=== PATIENT | female | born 1965 | race Caucasian/White ===

== ENCOUNTER 2018-01-15 11:25 | Emergency (ER) | payer BC, OTHER ==
[2018-01-15 11:58] LABS: BASO % 0.3 % (0.0-1.0); EOS % 0.2 % (0.0-3.0); HEMATOCRIT 31.9 % (36.0-47.0); HEMOGLOBIN 8.9 g/dl (12.0-16.0); IMMATURE GRANULOCYTE % 0.2 % (0-3.0); LYMPH # 0.6 10^3/uL (1.5-4.5); LYMPH % 9.6 % (24.0-44.0); MEAN CORPUSCULAR HEMOGLOBIN 18.7 pg (27.0-33.0); MEAN CORPUSCULAR HGB CONC 27.9 g/dl (32.0-36.5); MEAN CORPUSCULAR VOLUME 67.2 fl (80.0-96.0); MONO # 0.8 10^3/uL (0.0-0.8); MONO % 13.3 % (0.0-5.0); NEUTROPHILS # 4.8 10^3/uL (1.8-7.7); NEUTROPHILS % 76.4 % (36.0-66.0); PLATELET COUNT, AUTOMATED 200 10^3/uL (150-450); RED BLOOD COUNT 4.75 10^6/uL (4.00-5.40); RED CELL DISTRIBUTION WIDTH 17.2 % (11.5-14.5); WHITE BLOOD COUNT 6.3 10^3/uL (4.0-10.0)
[2018-01-15 12:22] LABS: ALBUMIN 3.8 GM/DL (3.2-5.2); ALBUMIN/GLOBULIN RATIO 1.03 (1.00-1.93); ALKALINE PHOSPHATASE 151 U/L (45-117); ALT/SGPT 99 U/L (12-78); ANION GAP 9 MEQ/L (8-16); AST/SGOT 95 U/L (7-37); BILIRUBIN,DIRECT 0.1 MG/DL (0.0-0.2); BILIRUBIN,TOTAL 0.4 MG/DL (0.2-1.0); BLOOD UREA NITROGEN 11 MG/DL (7-18); CALCIUM LEVEL 8.4 MG/DL (8.5-10.1); CARBON DIOXIDE LEVEL 24 MEQ/L (21-32); CHLORIDE LEVEL 108 MEQ/L (98-107); CPK CREATINE PHOSPHOKINASE 49 U/L (26-192); CREATININE FOR GFR 0.83 MG/DL (0.55-1.30); GLOMERULAR FILTRATION RATE > 60.0 (>51); GLUCOSE, FASTING 102 MG/DL (70-100); LIPASE 110 U/L (73-393); MB/CK RELATIVE INDEX 2.04 (< OR =4); POTASSIUM SERUM 3.6 MEQ/L (3.5-5.1); SODIUM LEVEL 141 MEQ/L (136-145); TOTAL PROTEIN 7.5 GM/DL (6.4-8.2); TROPONIN I < 0.02 NG/ML (< 0.10)
[2018-01-15 12:24] LABS: NT-PRO BNP 159 PG/ML (<125)
[2018-01-15 12:57] LABS: INFLUENZA A AMPLIFICATION POSITIVE (NEGATIVE); INFLUENZA B AMPLIFICATION NEGATIVE (NEGATIVE)
[2018-01-15] MEDS: ACETAMINOPHEN TAB 650MG DOSE (2X325MG) PO ×2 (14:00→18:21)
[2018-01-15] MEDS: OSELTAMIVIR PHOSPHATE 75 MG CAP (TAMIFLU) PO (14:00)
[2018-01-15] MEDS: NS 1,000 ML IV (14:00)
[2018-01-15] MEDS ORDERED: ISOVUE-370 76% 100ML VIAL (Q9967) As Ordered (14:13)
[2018-01-15 18:10] LABS: CPK CREATINE PHOSPHOKINASE 44 U/L (26-192); MB/CK RELATIVE INDEX 2.27 (< OR =4); TROPONIN I < 0.02 NG/ML (< 0.10)
== END 2018-01-15 18:59 | disposition home or self-care (01) ==
LOC: M ED 11:25
DX: J09.X2 Influenza due to identified novel influenza A virus with other respiratory manifestations (principal); R91.8 Other nonspecific abnormal finding of lung field; Z86.2 Personal history of diseases of the blood and blood-forming organs and certain disorders involving the immune mechanism; Z98.0 Intestinal bypass and anastomosis status; Z87.891 Personal history of nicotine dependence; Z86.19 Personal history of other infectious and parasitic diseases; Z98.890 Other specified postprocedural states
CPT/HCPCS: Q9967

== ENCOUNTER 2018-12-27 13:38 | Inpatient (IN) | payer BC, OTHER ==
[~2018-12-27] VITALS: Ht 167.6 cm; Wt 82.9 kg
[~2018-12-27 13:38] MED LIST: OSEL75CA PO
[2018-12-27] MEDS ORDERED: CLON2TAB7 PO ×2 (13:48→17:56)
[2018-12-27] MEDS ORDERED: ARIP1TAB6 PO (13:48)
[2018-12-27] MEDS ORDERED: TRAZ150T90 PO (13:48)
[2018-12-27] MEDS ORDERED: ESCI20TA PO (13:48)
[2018-12-27 15:48] LABS: HEMATOCRIT 30.7 % (36.0-47.0); HEMOGLOBIN 8.7 g/dl (12.0-15.5); MEAN CORPUSCULAR HEMOGLOBIN 19.7 pg (27.0-33.0); MEAN CORPUSCULAR HGB CONC 28.3 g/dl (32.0-36.5); MEAN CORPUSCULAR VOLUME 69.5 fl (80.0-96.0); PLATELET COUNT, AUTOMATED 224 10^3/uL (150-450); RED BLOOD COUNT 4.42 10^6/uL (4.00-5.40); WHITE BLOOD COUNT 6.2 10^3/uL (4.0-10.0)
[2018-12-27 16:20] LABS: AMPHETAMINES LEVEL URINE NEGATIVE (NEGATIVE); BARBITURATES URINE NEGATIVE (NEGATIVE); BENZODIAZEPINES URINE NEGATIVE (NEGATIVE); CANNABINOIDS URINE NEGATIVE (NEGATIVE); COCAINE METABOLITE URINE NEGATIVE (NEGATIVE); METHADONE URINE NEGATIVE (NEGATIVE); OPIATES URINE NEGATIVE (NEGATIVE); PHENCYCLIDINE URINE NEGATIVE (NEGATIVE)
[2018-12-27 16:30] LABS: ACETAMINOPHEN LEVEL < 2.0 UG/ML (10.0-30.0); ALBUMIN 3.4 GM/DL (3.2-5.2); ALT/SGPT 32 U/L (12-78); BILIRUBIN,DIRECT < 0.1 MG/DL (0.0-0.2); BILIRUBIN,TOTAL 0.2 MG/DL (0.2-1.0); BLOOD UREA NITROGEN 17 MG/DL (7-18); CARBON DIOXIDE LEVEL 28 MEQ/L (21-32); CHLORIDE LEVEL 108 MEQ/L (98-107); CREATININE FOR GFR 0.69 MG/DL (0.55-1.30); ETHYL ALCOHOL (ETHANOL) < 0.003 % (0.000-0.010); GLOMERULAR FILTRATION RATE > 60.0 (>51); GLUCOSE, FASTING 96 MG/DL (70-100); SALICYLATE LEVEL < 1.7 MG/DL (5.0-30.0); SODIUM LEVEL 141 MEQ/L (136-145); TOTAL PROTEIN 6.5 GM/DL (6.4-8.2)
[2018-12-27 16:57] LABS: FERRITIN 4 NG/ML (8-252); IRON (FE) 18 UG/DL (50-170); PERCENT SATURATION 3.7 % (13.2-45.0); TOTAL IRON BINDING CAPACITY 483 UG/DL (250-450)
[2018-12-27] MEDS ORDERED: MAALOX 30 ML SUSP *UDC PO PRN (18:00)
[2018-12-27 18:29] VITALS: BP 146/65
[2018-12-27] MEDS: clonazePAM 1 MG TAB PO SCH (21:16)
[2018-12-27] MEDS: QUEtiapine FUMARATE 50 MG TAB PO PRN (21:48)
[2018-12-28 06:00] VITALS: BP 109/55
[2018-12-28] MEDS ORDERED: ESCITALOPRAM OXALATE 10 MG TAB (LEXAPRO) PO SCH (09:00)
[2018-12-28] MEDS ORDERED: SERTRALINE HCL 50 MG TAB PO SCH (09:00)
--- NOTE | 2018-12-28 09:11 | HPEPDOC ---
[facility] Medical History & Physical Date of Admission Dec 27, 2018 History and Physical PCP: Dr. Nielsen ATTENDING: Dr. Saniya Barba HPI: 53 yo F admitted to [facility] for unspecified mood disorder, being medically examined today. No acute medical complaints today. Denies any fevers, chills, weakness, fatigue, MURPHY, CP, SOB, cough, palpitations, abdominal pain, N/V/D or changes in bowel or bladder habits. PMHx: Anxiety Depression History of SI Anemia PSHX: Gastric bypass procedure Cholecystectomy Colonoscopy 08/27. Dr. Priest. Diverticulosis. Tubal ligation SOCHX: Resides in: 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 ROS: As noted in HPI, otherwise 11pt ROS of systems reviewed and remarkable only for postmenopausal PE: GEN: 53 yo F, appears stated age. Well-nourished, well developed. No acute distress. Alert and oriented x 3. Pleasant, interactive. HEENT: Normocephalic, atraumatic. Pupils are equal, round, and reactive to light. Extraocular movements are intact. No nystagmus appreciated. Sclera are nonicteric. Conjunctiva without injection. Nose midline. Nasal turbinates without bogginess. EACs both patent BL. TMs both visualized and canas with good cone of light, no bulging or erythema. No facial asymmetry. Moist mucous membranes. Dentition fair. Pharynx pink and moist, no cobblestoning. Neck supple, trachea midline. No lymphadenopathy or thyromegaly appreciated. CHEST: Regular rate and rhythm, +S1, +S2 LUNGS: Clear to auscultation bilaterally. No wheezes, rales, or rhonchi. Breathing appears symmetric and easy. Patient is speaking in full sentences. No accessory muscle use. ABD: Round, soft, non-tender, non-distended. +Bowel sounds throughout. No rebound or guarding. No costovertebral angle tenderness. EXT: Pulses 2+ bilaterally dorsalis pedis and radial. No lower extremity edema appreciated. SKIN: [place], dry, warm. Capillary refill <2sec. No rashes. NEURO: Alert and oriented x 3. Cranial nerves III-XII are intact. No focal deficits appreciated. EKG: Pending A&P: 53 yo F admitted to [facility] for unspecified mood disorder 1. Psych. Plan per Psychiatry. Obtain baseline EKG to assure the safety of psychiatric medications as they can prolong the QT interval. 2. History of chronic anemia. Hemoglobin is noted to be 8.7. MCV is noted to be 69.5. Last hemoglobin in the system January 2018 was 8.9, appears to be at baseline. Colonoscopy 2014, indicating diverticulosis. Recommendation for repeat study 5 years. Iron studies noted. Check vitamin B12, folate. Request FOB. Add iron supplement. Recheck CBC in a.m. 3.Follow up with PCP on discharge. 4.Staff member Myesha present throughout exam. Vital Signs Vital Signs Date Time Temp Pulse Resp B/P (MAP) Pulse Ox O2 Delivery O2 Flow Rate FiO2 12/28/18 06:00 98.0 55 20 109/55 (73) 12/27/18 18:29 99 12/27/18 18:04 Room Air Laboratory Data Labs 24H Laboratory Tests 2 12/27/18 15:35: Nucleated Red Blood Cells % (auto) 0.0, Anion Gap 5L, Glomerular Filtration Rate > 60.0, Calcium Level 8.0L, Iron Level 18L, Total Iron Binding Capacity 483H, Transferrin % Saturation 3.7L, Ferritin 4L, Aspartate Amino Transf (AST/SGOT) 22, Alanine Aminotransferase (ALT/SGPT) 32, Alkaline Phosphatase 115, Total Bilirubin 0.2, Direct Bilirubin < 0.1, Total Protein 6.5, Albumin 3.4, Albumin/Globulin Ratio 1.10, Thyroid Stimulating Hormone (TSH) 1.020, Salicylates Level < 1.7L, Acetaminophen Level < 2.0L, Ethyl Alcohol Level < 0.003 12/27/18 15:48: Urine Amphetamines Screen NEGATIVE, Urine Benzodiazepines Screen NEGATIVE, Urine Opiates Screen NEGATIVE, Urine Methadone Screen NEGATIVE, Urine Barbiturates Screen NEGATIVE, Urine Phencyclidine Screen NEGATIVE, Urine Cocaine Metabolite Screen NEGATIVE, Urine Cannabinoids Screen NEGATIVE CBC/BMP Laboratory Tests 12/27/18 15:35 Red Blood Count 4.42, Mean Corpuscular Volume 69.5 L, Mean Corpuscular Hemoglobin 19.7 L, Mean Corpuscular Hemoglobin Concent 28.3 L, Red Cell Distribution Width 17.2 H Home Medications Scheduled Aripiprazole (Aripiprazole) 5 Mg Tab, 5 MG PO DAILY Clonazepam (Clonazepam) 2 Mg Tab, 1 MG PO QPM 1.5 TABS TOTAL DAILY Clonazepam (Clonazepam) 2 Mg Tab, 2 MG PO QHS Escitalopram Oxalate (Escitalopram Oxalate) 20 Mg Tab, 20 MG PO DAILY Trazodone HCl (Trazodone Hydrochorlide) 150 Mg Tab, 150 MG PO QHS Allergies Coded Allergies: Codeine (Verified Allergy, Unknown, 02/02/15) Asuncion Esparza Dec 28, 2018 09:11
[2018-12-28] MEDS: FERROUS SULFATE 325MG TAB PO SCH ×2 (09:50→21:00)
[2018-12-28 10:17] LABS: FOLATE 5.3 NG/ML (>5.4)
[2018-12-28] MEDS: FOLIC ACID 1 MG TAB PO SCH (12:32)
[2018-12-28 18:21] VITALS: BP 121/58
--- NOTE | 2018-12-28 18:54 | MHHPEPDOC ---
General Date Of Admission: Dec 27, 2018 Legal Status: 9.39 Chief Complaint "I can't keep going on like this". History of Present Illness HISTORY OF THE PRESENT ILLNESS: Patient is a 53 -year-old , female, who * Therapist Reason for Referral Susana from [facility] sent pt over due to her having safety concerns for the pt. Chief Complaint Pt disclosed she has had ongoing problems with her place of employment (20 years) for ~2 years now. 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 Pt describes the work place as toxic and in particular, she is being bullied by one person making it impossible for her to do do her job or even want to go to work. Pt was very tearful explaining this story and stated "theres just so many things to tell you that have gone wrong. There's a lot more but I'm sick of retelling the whole story." Pt took a leave of absence due to medical reasons and without knowledge, was not being paid when she should have been. Pt states that her and her are "barely surviving." Pt reported thinking that if she ended her life at least her family would get the life insurance money and they would not be struggling financially anymore. Pt also disclosed that she has thought of driving her car into a hard object as a way to kill herself to stop the emotional pain. Pt also reported she often thinks before bed, "I just want to fall asleep and never wake up so I do not have to go to work tomorrow." Pt states she was "fine" until this particular person started bullying her at work, making her not want to work, but being unable to leave due to being uncertain about skilled nursing. Pt reports she has tried finding employment elsewhere but when places of employment find out about the lawsuit, they do not hire her, leaving the pt feeling stuck. Pt has a hx of panic attacks for ~2years now (since this situation begin). Pt denies HI, AH/VH, ETOH/substance abuse, poor sleeping/appetite. Pt is in tx with Susana @ [facility]". Psychiatric Review of Systems Depression (2 or more weeks): depressed mood, anhedonia, insomnia/hypersomnia, feelings of worthlesness, decreased energy, difficulty concentrating, psychomotor changes, suicidal thoughts Makenzie (4 or more days of): denies Psychosis: paranoia (she has felt like this since she started having problems at work) PTSD: denies Anxiety: gen/non-specific anxiety, situational anxiety, panic attacks Anxiety/ 6 months or more of: restlessness, keyed up, easily fatigued, difficulty concentrating, irritability, muscle tension, sleep disturbance Past Psychiatric History Previous Psychiatric Diagnosis: Panic attacks Previous Psychiatric Admissions: Denies Suicide Attempts: Denies Psychiatric Follow-up: She receives therapy weekly Psychiatric medications: Lexapro years ago when she was going through menopause. Past Medical History Medical Problems "My bones hurt" Head Injury: No Seizures: No Hospitalizations: Yes (pregnancies, gallbladder, tubal ligation, gastric bypas) Surgeries: Yes Family Medical/Psychiatric HX Medical Problems son has type i diabetes Psychiatric Disorders: No Addiction: No Suicide Attemps/Completions: No Addiction History nicotine (She quit 27 years ago), alcohol (a couple of times a week, one or 2) Social History Childhood: "It was fun", grew up with both parents, they later in life. She had 7 siblings, got along with them, school was ok Abuse/Trauma: Bullied at work during the last couple of months. denies sexual, physical abuse Current Living Situation: Lives with her and her dogs Education: Bachelors in Human Services Employment: employed Social Support: Her and friends Legal: Denies but she is having legal problems at work, she is being harassed Marital: , has children. Mental Status Examination General Appearance: unkempt, disheveled, ds/not appear stated age, hospital scubs/clothing Build: average Demeanor: average Eye Contact: average Activity: anxious Behavior: cooperative Speech: clear, spontaneous, reg/rate,rhythm,volume Mood: depressed, anxious Affect: full, appropriate, congruent, anxious, other (depressed) Thought Process: logical/linear Thought Content (Delusions): none reported Thought Content (Other): preoccupied, guilty, ideas of reference, appears paranoid Thought Content (Aggressive): none reported Perception (Hallucinations): none reported Perception (Other): none reported Cognition (Impairment of): none reported Cognition(Intelligence Est.): average Oriented: Awake, Alert, Oriented times three Insight: fair Judgment: Fair Psychosis: Denies Diagnoses 1. R/O Major Depressive disorder, with psychosis 2. Generalized Anxiety Disorder Assessment patient seems paranoid, she says that different staff members have conspired against them. She says one of those persons is not longer working there but the new person that has substituted the previous boss, is even worse. she says she is being bullied, she has no idea as of what to do. Her had to go to therapy because she is "in such a bad shape" Initial Treatment Plan 1. Patient was admitted on a [9.39] status. 2. Complete history was obtained. 3. With patients permission, family will be contacted and database will be expanded. 4. Patients medication regimen will be reviewed and changed accordingly. 5. Patient will be provided with protected environment. 6. Patient will be treated with individual, group, and milieu therapies. 7. Patient will receive supportive psych-education. 8. Discharge planning will commence immediately. 9. Outpatient follow-up treatment will be strongly recommended. 10. The initial treatment plan will focus initially on: * Depression. * Anxiety * altered thoughts * Risk for suicide. ESTIMATED LENGTH OF STAY: 5-7 DAYS. TIME SPENT COUNSELING AND COORDINATING INITIAL CARE: 60 minutes. Vital Signs Vital Signs Date Time Temp Pulse Resp B/P (MAP) Pulse Ox O2 Delivery O2 Flow Rate FiO2 12/28/18 06:00 98.0 55 20 109/55 (73) 12/27/18 18:29 99 12/27/18 18:04 Room Air Laboratory Data 24H Labs Laboratory Tests 2 12/27/18 15:34: Vitamin B12 Level 270, Folate 5.3L 12/27/18 15:35: Nucleated Red Blood Cells % (auto) 0.0, Anion Gap 5L, Glomerular Filtration Rate > 60.0, Calcium Level 8.0L, Iron Level 18L, Total Iron Binding Capacity 483H, Transferrin % Saturation 3.7L, Ferritin 4L, Aspartate Amino Transf (AST/SGOT) 22, Alanine Aminotransferase (ALT/SGPT) 32, Alkaline Phosphatase 115, Total Bilirubin 0.2, Direct Bilirubin < 0.1, Total Protein 6.5, Albumin 3.4, Albumin/Globulin Ratio 1.10, Thyroid Stimulating Hormone (TSH) 1.020, Salicylates Level < 1.7L, Acetaminophen Level < 2.0L, Ethyl Alcohol Level < 0.003 12/27/18 15:48: Urine Amphetamines Screen NEGATIVE, Urine Benzodiazepines Screen NEGATIVE, Urine Opiates Screen NEGATIVE, Urine Methadone Screen NEGATIVE, Urine Barbiturates Screen NEGATIVE, Urine Phencyclidine Screen NEGATIVE, Urine Cocaine Metabolite Screen NEGATIVE, Urine Cannabinoids Screen NEGATIVE CBC/BMP Laboratory Tests 12/27/18 15:35 Red Blood Count 4.42, Mean Corpuscular Volume 69.5 L, Mean Corpuscular Hemoglobin 19.7 L, Mean Corpuscular Hemoglobin Concent 28.3 L, Red Cell Distribution Width 17.2 H Medications Scheduled Aripiprazole (Aripiprazole) 5 Mg Tab, 5 MG PO DAILY, (Reported) Clonazepam (Clonazepam) 2 Mg Tab, 1 MG PO QPM, (Reported) 1.5 TABS TOTAL DAILY Clonazepam (Clonazepam) 2 Mg Tab, 2 MG PO QHS, (Reported) Escitalopram Oxalate (Escitalopram Oxalate) 20 Mg Tab, 20 MG PO DAILY, (Reported) Trazodone HCl (Trazodone Hydrochorlide) 150 Mg Tab, 150 MG PO QHS, (Reported) Allergies Coded Allergies: Codeine (Verified Allergy, Unknown, 02/02/15) HENRIETTA CLIFFORD MD Dec 28, 2018 15:10
[2018-12-28] MEDS: clonazePAM 1 MG TAB PO SCH (21:10)
[2018-12-28] MEDS: QUEtiapine FUMARATE 50 MG TAB PO PRN (21:10)
[2018-12-28] MEDS: MOM 30ML SUSPENSION UDC PO PRN (21:10)
[2018-12-28] MEDS: PALIPERIDONE 3 MG ER TAB (INVEGA) PO SCH (21:10)
[2018-12-29] MEDS: ACETAMINOPHEN TAB 650MG DOSE (2X325MG) PO PRN ×3 (06:34→20:51)
[2018-12-29 06:40] VITALS: BP 118/57
[2018-12-29 07:11] LABS: HEMATOCRIT 31.6 % (36.0-47.0); HEMOGLOBIN 8.9 g/dl (12.0-15.5); MEAN CORPUSCULAR HEMOGLOBIN 19.7 pg (27.0-33.0); MEAN CORPUSCULAR HGB CONC 28.2 g/dl (32.0-36.5); MEAN CORPUSCULAR VOLUME 69.9 fl (80.0-96.0); PLATELET COUNT, AUTOMATED 175 10^3/uL (150-450); RED BLOOD COUNT 4.52 10^6/uL (4.00-5.40); WHITE BLOOD COUNT 5.8 10^3/uL (4.0-10.0)
--- NOTE | 2018-12-29 07:24 | ECGEPIP ---
Stationary ECG Study [facility] Test Date: 2018-12-28 Pat Name: LINSEY MORE Department: Room: [place] [address] Gender: F Retail Buyer: : [id number] Requested By: Asuncion Esparza Order Number: [id number] Reading MD: Sindy Hdez Measurements Intervals [place] Rate: 66 P: 65 MO: 169 QRS: 17 QRSD: 86 T: 29 QT: 357 QTc: 374 Interpretive Statements SINUS RHYTHM NORMAL Electronically Signed On 12-29-2018 7:23:53 EST by Sindy Hdez
[2018-12-29] MEDS: FOLIC ACID 1 MG TAB PO SCH (08:57)
[2018-12-29] MEDS: FERROUS SULFATE 325MG TAB PO SCH (08:57)
[2018-12-29] MEDS: SERTRALINE HCL 50 MG TAB PO SCH (08:57)
[2018-12-29] MEDS: PALIPERIDONE 3 MG ER TAB (INVEGA) PO SCH ×2 (08:57→20:51)
[2018-12-29 18:00] VITALS: BP 140/66
[2018-12-29] MEDS: QUEtiapine FUMARATE 50 MG TAB PO PRN (20:51)
[2018-12-29] MEDS: clonazePAM 1 MG TAB PO SCH (20:51)
[2018-12-30 06:00] VITALS: BP 108/57
[2018-12-30] MEDS: ACETAMINOPHEN TAB 650MG DOSE (2X325MG) PO PRN ×2 (07:13→16:27)
[2018-12-30] MEDS: SERTRALINE HCL 50 MG TAB PO SCH (08:39)
[2018-12-30] MEDS: PALIPERIDONE 3 MG ER TAB (INVEGA) PO SCH ×2 (08:39→20:50)
[2018-12-30] MEDS: FOLIC ACID 1 MG TAB PO SCH (08:39)
[2018-12-30 18:00] VITALS: BP 114/63
[2018-12-30] MEDS: QUEtiapine FUMARATE 50 MG TAB PO PRN (20:50)
[2018-12-30] MEDS: clonazePAM 1 MG TAB PO SCH (20:50)
[2018-12-31] MEDS: ACETAMINOPHEN TAB 650MG DOSE (2X325MG) PO PRN ×3 (02:09→16:04)
[2018-12-31 07:12] VITALS: BP 129/60
[2018-12-31] MEDS: FOLIC ACID 1 MG TAB PO SCH (09:00)
[2018-12-31] MEDS: SERTRALINE HCL 50 MG TAB PO SCH (09:00)
[2018-12-31] MEDS: hydrOXYzine 50 MG TAB PO PRN ×2 (09:00→15:28)
[2018-12-31] MEDS: PALIPERIDONE 3 MG ER TAB (INVEGA) PO SCH ×2 (09:00→20:59)
[2018-12-31] MEDS: MOM 30ML SUSPENSION UDC PO PRN (17:17)
--- NOTE | 2018-12-31 17:31 | MHIPNPDOC ---
[facility] Progress Note Progress Note DATE OF SERVICE: 12/31/18 HISTORY:HISTORY OF THE PRESENT ILLNESS: Patient is a 53 -year-old , female, who * Therapist Reason for Referral Susana from [facility] sent pt over due to her having safety concerns for the pt. Chief Complaint Pt disclosed she has had ongoing problems with her place of employment (20 years) for ~2 years now. 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 Pt describes the work place as toxic and in particular, she is being bullied by one person making it impossible for her to do do her job or even want to go to work. Pt was very tearful explaining this story and stated "theres just so many things to tell you that have gone wrong. There's a lot more but I'm sick of retelling the whole story." Pt took a leave of absence due to medical reasons and without knowledge, was not being paid when she should have been. Pt states that her and her are "barely surviving." Pt reported thinking that if she ended her life at least her family would get the life insurance money and they would not be struggling financially anymore. Pt also disclosed that she has thought of driving her car into a hard object as a way to kill herself to stop the emotional pain. Pt also reported she often thinks before bed, "I just want to fall asleep and never wake up so I do not have to go to work tomorrow." Pt states she was "fine" until this particular person started bullying her at work, making her not want to work, but being unable to leave due to being uncertain about penitentiary. Pt reports she has tried finding employment elsewhere but when places of employment find out about the lawsuit, they do not hire her, leaving the pt feeling stuck. Pt has a hx of panic attacks for ~2years now (since this situation begin). Pt denies HI, AH/VH, ETOH/substance abuse, poor sleeping/appetite. Pt is in tx with Susana @ [facility]". VITAL SIGNS: See below. NEW TEST RESULTS: . CURRENT MEDICATIONS: See below. MENTAL STATUS EXAMINATION: Patient is a 53 year old female, who is alert, cooperative, dressed in hospital clothes, disheveled, unkempt Speech: Is normal rate, tone and volume. Language skills are good. Thought processes including: a little disorganized, paranoid, circumstantial. Thought content: focused on her problems at work, paranoid thoughts about her situation at work. cognitive distortions, depressed/anxious thoughts Description of abnormal or psychotic thoughts: denies SI/HI, denies thought delusions, denies AV hallucinations but she exhibits paranoid behavior. Judgment: Poor. Insight: Poor Orientation: x 3 Recent and remote memory: Good Attention span and concentration: distractible. Fund of knowledge: average Mood: depressed/anxious. Affect: congruent with mood, constricted, depressed, anxious. DIAGNOSES: 1. Major Depressive disorder with psychosis 2. R/O delusional disorder ASSESSMENT: Patient continues to be fixated on her job situation, where he feels everyone is against her, especially after she sued them. She hasn't been able to sleep, she will receive Seroquel 100 mgs PO QHS MANAGEMENT PLAN: Start Seroquel 100 mgs PO QHS TIME SPENT: 25 minutes. Vital Signs Vital Signs Date Time Temp Pulse Resp B/P (MAP) Pulse Ox O2 Delivery O2 Flow Rate FiO2 12/31/18 07:12 97.8 95 14 129/60 (83) 12/30/18 08:06 Room Air 12/27/18 18:29 99 Current Medications Current Medications Acetaminophen (Tylenol Tab) 650 mg Q6HP PRN PO HEADACHE or DISCOMFORT Last administered on 12/31/18at 09:00; Start 12/27/18 at 18:00 Al Hydrox/Mg Hydrox/Simethicone (Mylanta) 30 ml Q4HP PRN PO HEARTBURN/INDIGESTION Last administered on 12/28/18at 21:45; Start 12/27/18 at 18:00 Aripiprazole (AbiLIFY) 5 mg DAILY PO Last administered on 12/28/18at 08:12; Start 12/28/18 at 09:00; Stop 12/28/18 at 19:27; Status DC Clonazepam (KlonoPIN) 2 mg QHS PO Last administered on 12/30/18at 20:50; Start 12/27/18 at 21:00 Escitalopram Oxalate (Lexapro) 20 mg DAILY PO Last administered on 12/28/18at 08:12; Start 12/28/18 at 09:00; Stop 12/28/18 at 15:15; Status DC Ferrous Sulfate (Ferrous Sulfate) 325 mg BID PO Last administered on 12/29/18 08:57; Start 12/28/18 at 09:00; Stop 12/29/18 at 11:56; Status DC Folic Acid (Folic Acid) 1 mg DAILY PO Last administered on 12/31/18at 09:00; Start 12/28/18 at 09:00 Home Med (Med Rec Complete!) ASDIRECTED XX ; Start 12/27/18 at 18:00; Stop 12/27/18 at 18:04; Status DC Hydroxyzine HCl (Atarax) 50 mg Q6HP PRN PO ANXIETY/AGGITATION Last administered on 12/31/18at 09:00; Start 12/27/18 at 18:00 Magnesium Hydroxide (Milk Of Magnesia) 30 ml DAILYPRN PRN PO CONSTIPATION Last administered on 12/28/18at 21:10; Start 12/27/18 at 18:00 Paliperidone (Invega) 3 mg BID PO Last administered on 12/31/18at 09:00; Start 12/28/18 at 21:00 Quetiapine Fumarate (SEROquel) 50 mg QHSP PRN PO INSOMNIA Last administered on 12/30/18at 20:50; Start 12/27/18 at 18:00 Sertraline HCl (Zoloft) 50 mg QAM PO ; Start 12/28/18 at 09:00; Stop 12/28/18 at 09:00; Status DC Sertraline HCl (Zoloft) 50 mg QAM PO Last administered on 12/31/18at 09:00; Start 12/29/18 at 09:00 Allergies Coded Allergies: Codeine (Verified Allergy, Unknown, 02/02/15) HENRIETTA CLIFFORD MD Dec 31, 2018 10:51
[2018-12-31] MEDS ORDERED: QUEtiapine FUMARATE 50 MG TAB PO PRN (17:45)
[2018-12-31 18:00] VITALS: BP 134/68
[2018-12-31] MEDS ORDERED: IBUPROFEN 600 MG TAB PO PRN (19:00)
--- NOTE | 2018-12-31 19:08 | REP ---
CT Head without contrast HISTORY: Mental status change COMPARISON: None There is no intraparenchymal hemorrhage, acute infarct, mass or midline shift. The ventricular system and cortical ethan consistent with minimal volume loss. There is no extra cerebral collection. There is no fracture. The visualized sinuses are clear. IMPRESSION: Minimal volume loss. Electronically Signed by Galo Hannah MD 12/31/2018 07:00 P
[2018-12-31] MEDS: FLUTICASONE PROP 0.05% NASAL SPRAY 16 GM (FLONASE) NARES SCH (20:58)
[2018-12-31] MEDS: clonazePAM 1 MG TAB PO SCH (20:59)
[2019-01-01] MEDS: ACETAMINOPHEN TAB 650MG DOSE (2X325MG) PO PRN ×2 (05:51→15:07)
[2019-01-01 06:34] VITALS: BP 126/61
[2019-01-01] MEDS: FOLIC ACID 1 MG TAB PO SCH (08:17)
[2019-01-01] MEDS: FLUTICASONE PROP 0.05% NASAL SPRAY 16 GM (FLONASE) NARES SCH ×2 (08:17→21:08)
[2019-01-01] MEDS: PALIPERIDONE 3 MG ER TAB (INVEGA) PO SCH ×2 (08:17→21:10)
[2019-01-01] MEDS ORDERED: SERTRALINE HCL 50 MG TAB PO SCH (09:00)
--- NOTE | 2019-01-01 09:36 | MHIPN ---
DATE: 12/29/2018 The patient complains that she was feeling sick this morning and she had a headache. She said that she was having a lot of vivid dreams all night. She seems to be very focused on not feeling well physically and very guarded about the paranoid thoughts and ideas of reference that she has. MENTAL STATUS EXAMINATION: She is alert and oriented times three. Eye contact is fair. She is verbally spontaneous. There is no formal thought disorder noted. Mood is depressed and anxious. Affect is full range and appropriate. She is guarded, but I think that she still continues to have paranoid thoughts and ideas of reference. SHe is not suicidal or homicidal. Concentration is fair. Memory is intact. Insight and judgment are poor. DIAGNOSIS: 1. Rule out major depressive disorder with psychosis and generalized anxiety disorder. TREATMENT PLAN: At this point, we will continue to monitor the patient for her underlying psychotic symptoms. We will titrate her medications as indicated.
--- NOTE | 2019-01-01 09:43 | MHIPN ---
DATE: 12/30/2018 The patient today continues to complain of having a headache. She says that it is not as intense as it was before, but it does not seem to fully subside. The patient is not voicing any paranoid type thoughts at this point, but she is very vague and talks about how she wants to know what is going to happen in her future. MENTAL STATUS EXAMINATION: She is alert and oriented times three. Eye contact is fairly good. She is verbally spontaneous. She describes that her mood is "not good." She still appears to be depressed. Affect is appropriate. She is also anxious. Although she is vague about it, I do think that she continues to have some underlying paranoid thinking. She denies suicidal or homicidal ideations. Concentration is fair. Memory is intact. Insight and judgment poor. DIAGNOSES: 1. Rule out major depressive disorder with psychosis. 2. Generalized anxiety disorder. TREATMENT PLAN: We will continue to evaluate this patient for ongoing psychotic symptoms, depression and anxiety and we will continue to titrate her medications as indicated. It is possible that she might be having some headaches as a result of some of her medications. It seems that Zoloft is a new medication for her and sometimes Zoloft can cause a headache, but she does say that it has lessened now and it is possible that she may be adjusting to it as this point. If not, we may have to discontinue the Zoloft.
[2019-01-01] MEDS ORDERED: SODIUM CHLORIDE NASAL 0.65% SPRAY BTL (OCEAN) PRN (10:15)
[2019-01-01] MEDS: FERROUS SULFATE 325MG TAB PO SCH ×2 (10:32→21:10)
[2019-01-01] MEDS: hydrOXYzine 50 MG TAB PO PRN (15:07)
[2019-01-01 18:00] VITALS: BP 102/58
--- NOTE | 2019-01-01 19:53 | MHIPNPDOC ---
[facility] Progress Note Progress Note DATE OF SERVICE: 01/01/19 HISTORY:HISTORY OF THE PRESENT ILLNESS: Patient is a 53 -year-old , female, who * Therapist Reason for Referral Susana from [facility] sent pt over due to her having safety concerns for the pt. Chief Complaint Pt disclosed she has had ongoing problems with her place of employment (20 years) for ~2 years now. 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 Pt describes the work place as toxic and in particular, she is being bullied by one person making it impossible for her to do do her job or even want to go to work. Pt was very tearful explaining this story and stated "theres just so many things to tell you that have gone wrong. There's a lot more but I'm sick of retelling the whole story." Pt took a leave of absence due to medical reasons and without knowledge, was not being paid when she should have been. Pt states that her and her are "barely surviving." Pt reported thinking that if she ended her life at least her family would get the life insurance money and they would not be struggling financially anymore. Pt also disclosed that she has thought of driving her car into a hard object as a way to kill herself to stop the emotional pain. Pt also reported she often thinks before bed, "I just want to fall asleep and never wake up so I do not have to go to work tomorrow." Pt states she was "fine" until this particular person started bullying her at work, making her not want to work, but being unable to leave due to being uncertain about assisted. Pt reports she has tried finding employment elsewhere but when places of employment find out about the lawsuit, they do not hire her, leaving the pt feeling stuck. Pt has a hx of panic attacks for ~2years now (since this situation begin). Pt denies HI, AH/VH, ETOH/substance abuse, poor sleeping/appetite. Pt is in tx with Susana @ [facility]". VITAL SIGNS: See below. NEW TEST RESULTS: . CURRENT MEDICATIONS: See below. MENTAL STATUS EXAMINATION: Patient is a 53 year old female, who is alert, cooperative, dressed in hospital clothes, disheveled, unkempt, laying in bed Speech: Is normal rate, tone and volume. Language skills are good. Thought processes including: Linear. Thought content: Cognitive distortions, paranoid thoughts Description of abnormal or psychotic thoughts: denies SI/HI, denies thought delusions, denies AV hallucinations but she exhibits paranoid behavior. Judgment: Poor. Insight: Poor Orientation: x 3 Recent and remote memory: Good Attention span and concentration: distractible. Fund of knowledge: average Mood: depressed/anxious. Affect: congruent with mood, constricted, depressed, anxious. DIAGNOSES: 1. Major Depressive disorder with psychosis 2. R/O delusional disorder ASSESSMENT: Patient was laying in bed, asleep when I awakened her. She reported that she was feeling better and she looked better. She looked less tired although she still reported problems sleeping. She said she woke up around 2:30 a..m and was not able to fall asleep. She is not as anxious as she was, she is not overstressing about her situation at work today. I encouraged her to attend groups if she can (I saw a collage that she did in group) but I also encouraged her to rest. Will increase Seroquel to 200 mgs. PO QHS MANAGEMENT PLAN: Start Seroquel 200 mgs PO QHS TIME SPENT: 25 minutes. Vital Signs Vital Signs Date Time Temp Pulse Resp B/P (MAP) Pulse Ox O2 Delivery O2 Flow Rate FiO2 01/01/19 06:34 99.6 97 18 126/61 (82) 12/30/18 08:06 Room Air 12/27/18 18:29 99 Current Medications Current Medications Acetaminophen (Tylenol Tab) 650 mg Q6HP PRN PO HEADACHE or DISCOMFORT Last administered on 01/01/19at 15:07; Start 12/27/18 at 18:00 Al Hydrox/Mg Hydrox/Simethicone (Mylanta) 30 ml Q4HP PRN PO HEARTBURN/INDIGESTION Last administered on 12/28/18at 21:45; Start 12/27/18 at 18:00 Aripiprazole (AbiLIFY) 5 mg DAILY PO Last administered on 12/28/18at 08:12; Sta rt 12/28/18 at 09:00; Stop 12/28/18 at 19:27; Status DC Clonazepam (KlonoPIN) 2 mg QHS PO Last administered on 12/31/18 20:59; Start 12/27/18 at 21:00 Escitalopram Oxalate (Lexapro) 20 mg DAILY PO Last administered on 12/28/18at 08:12; Start 12/28/18 at 09:00; Stop 12/28/18 at 15:15; Status DC Ferrous Sulfate (Ferrous Sulfate) 325 mg BID PO Last administered on 12/29/18 08:57; Start 12/28/18 at 09:00; Stop 12/29/18 at 11:56; Status DC Ferrous Sulfate (Ferrous Sulfate) 325 mg BID PO Last administered on 01/01/19 10:32; Start 01/01/19 at 09:00 Fluticasone Propionate (Flonase 0.05% Nasal [place]) 1 spray BID NARES Last administered on 01/01/19 08:17; Start 12/31/18 at 21:00 Folic Acid (Folic Acid) 1 mg DAILY PO Last administered on 01/01/19 08:17; St art 12/28/18 at 09:00 Home Med (Med Rec Complete!) ASDIRECTED XX ; Start 12/27/18 at 18:00; Stop 12/27/18 at 18:04; Status DC Hydroxyzine HCl (Atarax) 50 mg Q6HP PRN PO ANXIETY/AGGITATION Last administered on 01/01/19at 15:07; Start 12/27/18 at 18:00 Ibuprofen (Advil) 600 mg Q6HP PRN PO PAIN OR DISCOMFORT; Start 12/31/18 at 19:00; Stop 01/01/19 at 10:13; Status DC Magnesium Hydroxide (Milk Of Magnesia) 30 ml DAILYPRN PRN PO CONSTIPATION Last administered on 12/31/18at 17:17; Start 12/27/18 at 18:00 Paliperidone (Invega) 3 mg BID PO Last administered on 01/01/19 08:17; Start 12/28/18 at 21:00 Quetiapine Fumarate (SEROquel) 50 mg QHSP PRN PO INSOMNIA Last administered on 12/30/18at 20:50; Start 12/27/18 at 18:00; Stop 12/31/18 at 17:32; Status DC Quetiapine Fumarate (SEROquel) 100 mg QHSP PRN PO INSOMNIA Last administered on 12/31/18at 20:59; Start 12/31/18 at 17:45 Sertraline HCl (Zoloft) 50 mg QAM PO ; Start 12/28/18 at 09:00; Stop 12/28/18 at 09:00; Status DC Sertraline HCl (Zoloft) 50 mg QAM PO Last administered on 12/31/18at 09:00; Start 12/29/18 at 09:00; Stop 12/31/18 at 17:32; Status DC Sertraline HCl (Zoloft) 100 mg QAM PO Last administered on 01/01/19at 08:17; Start 01/01/19 at 09:00; Stop 01/01/19 at 10:04; Status DC Sertraline HCl (Zoloft) 100 mg QAM PO ; Start 01/02/19 at 09:00 Sodium Chloride ([place] Nasal [place]) 2 spray Q2HP PRN NA NASAL DRYNESS; Start 01/01/19 at 10:15 Allergies Coded Allergies: Codeine (Verified Allergy, Unknown, 02/02/15) HENRIETTA CLIFFORD MD Jan 01, 2019 19:53
[2019-01-01] MEDS ORDERED: QUEtiapine FUMARATE 200 MG TAB PO PRN (20:00)
[2019-01-01] MEDS: clonazePAM 1 MG TAB PO SCH (21:10)
[2019-01-02 06:53] VITALS: BP 103/51
[2019-01-02] MEDS: hydrOXYzine 50 MG TAB PO PRN (08:58)
[2019-01-02] MEDS: FOLIC ACID 1 MG TAB PO SCH (08:59)
[2019-01-02] MEDS: PALIPERIDONE 3 MG ER TAB (INVEGA) PO SCH ×2 (08:59→20:52)
[2019-01-02] MEDS: FERROUS SULFATE 325MG TAB PO SCH ×2 (08:59→20:52)
[2019-01-02] MEDS: FLUTICASONE PROP 0.05% NASAL SPRAY 16 GM (FLONASE) NARES SCH ×2 (08:59→20:52)
[2019-01-02] MEDS: SERTRALINE 100 MG TAB PO SCH (08:59)
[2019-01-02] MEDS: DOCUSATE SODIUM 100 MG CAP PO SCH ×2 (10:58→20:52)
[2019-01-02 18:00] VITALS: BP 121/63
[2019-01-02] MEDS: QUEtiapine FUMARATE 100 MG TAB PO PRN (20:53)
[2019-01-02] MEDS: clonazePAM 1 MG TAB PO SCH (20:53)
--- NOTE | 2019-01-02 21:03 | MHIPNPDOC ---
[facility] Progress Note Progress Note DATE OF SERVICE: 01/02/19 HISTORY:HISTORY OF THE PRESENT ILLNESS: Patient is a 53 -year-old , female, who * Therapist Reason for Referral Susana from [facility] sent pt over due to her having safety concerns for the pt. Chief Complaint Pt disclosed she has had ongoing problems with her place of employment (20 years) for ~2 years now. 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 Pt describes the work place as toxic and in particular, she is being bullied by one person making it impossible for her to do do her job or even want to go to work. Pt was very tearful explaining this story and stated "theres just so many things to tell you that have gone wrong. There's a lot more but I'm sick of retelling the whole story." Pt took a leave of absence due to medical reasons and without knowledge, was not being paid when she should have been. Pt states that her and her are "barely surviving." Pt reported thinking that if she ended her life at least her family would get the life insurance money and they would not be struggling financially anymore. Pt also disclosed that she has thought of driving her car into a hard object as a way to kill herself to stop the emotional pain. Pt also reported she often thinks before bed, "I just want to fall asleep and never wake up so I do not have to go to work tomorrow." Pt states she was "fine" until this particular person started bullying her at work, making her not want to work, but being unable to leave due to being uncertain about usp. Pt reports she has tried finding employment elsewhere but when places of employment find out about the lawsuit, they do not hire her, leaving the pt feeling stuck. Pt has a hx of panic attacks for ~2years now (since this situation begin). Pt denies HI, AH/VH, ETOH/substance abuse, poor sleeping/appetite. Pt is in tx with Susana @ [facility]". VITAL SIGNS: See below. NEW TEST RESULTS: . CURRENT MEDICATIONS: See below. MENTAL STATUS EXAMINATION: Patient is a 53 year old female, who is alert, cooperative, dressed in hospital clothes, disheveled, unkempt, looking tired Speech: Is normal rate, tone and volume. Language skills are good. Thought processes including: Linear. Thought content: Cognitive distortions but she is less paranoid although she is afraid of her co workers Description of abnormal or psychotic thoughts: denies SI/HI, denies thought delusions, denies AV hallucinations, a little less paranoid Judgment: Poor. Insight: Poor Orientation: x 3 Recent and remote memory: Good Attention span and concentration: improving Fund of knowledge: average Mood: depressed/anxious, but there is improvement Affect: congruent with mood, constricted, depressed, anxious. DIAGNOSES: 1. Major Depressive disorder with psychosis 2. R/O delusional disorder ASSESSMENT: Ranulfo tells me she is still having problems sleeping with 200 mgs of Seroquel, she says she still wakes up at 2:30 a.m. TW will increase Seroquel to 300 mgs PO QHS. MANAGEMENT PLAN: Start Seroquel 300 mgs PO QHS TIME SPENT: 25 minutes. Vital Signs Vital Signs Date Time Temp Pulse Resp B/P (MAP) Pulse Ox O2 Delivery O2 Flow Rate FiO2 01/02/19 06:53 98.6 78 16 103/51 (68) 12/30/18 08:06 Room Air 12/27/18 18:29 99 Current Medications Current Medications Acetaminophen (Tylenol Tab) 650 mg Q6HP PRN PO HEADACHE or DISCOMFORT Last administered on 01/01/19at 15:07; Start 12/27/18 at 18:00 Al Hydrox/Mg Hydrox/Simethicone (Mylanta) 30 ml Q4HP PRN PO HEARTBURN/INDIGESTION Last administered on 12/28/18at 21:45; Start 12/27/18 at 18:00 Aripiprazole (AbiLIFY) 5 mg DAILY PO Last administered on 12/28/18at 08:12; Start 12/28/18 at 09:00; Stop 12/28/18 at 19:27; Status DC Clonazepam (KlonoPIN) 2 mg QHS PO Last administered on 01/01/19at 21:10; Start 12/27/18 at 21:00 Docusate Sodium (Colace) 100 mg BID PO Last administered on 01/02/19at 10:58; Start 01/02/19 at 09:00 Escitalopram Oxalate (Lexapro) 20 mg DAILY PO Last administered on 12/28/18 08:12; Start 12/28/18 at 09:00; Stop 12/28/18 at 15:15; Status DC Ferrous Sulfate (Ferrous Sulfate) 325 mg BID PO Last administered on 12/29/18 08:57; Start 12/28/18 at 09:00; Stop 12/29/18 at 11:56; Status DC Ferrous Sulfate (Ferrous Sulfate) 325 mg BID PO Last administered on 01/02/19at 08:59; Start 01/01/19 at 09:00 Fluticasone Propionate (Flonase 0.05% Nasal [place]) 1 spray BID NARES Last administered on 01/02/19 08:59; Start 12/31/18 at 21:00 Folic Acid (Folic Acid) 1 mg DAILY PO Last administered on 01/02/19 08:59; Start 12/28/18 at 09:00 Home Med (Med Rec Complete!) ASDIRECTED XX ; Start 12/27/18 at 18:00; Stop 12/27/18 at 18:04; Status DC Hydroxyzine HCl (Atarax) 50 mg Q6HP PRN PO ANXIETY/AGGITATION Last administered on 01/02/19 08:58; Start 12/27/18 at 18:00 Ibuprofen (Advil) 600 mg Q6HP PRN PO PAIN OR DISCOMFORT; Start 12/31/18 at 19:00; Stop 01/01/19 at 10:13; Status DC Magnesium Hydroxide (Milk Of Magnesia) 30 ml DAILYPRN PRN PO CONSTIPATION Last administered on 12/31/18at 17:17; Start 12/27/18 at 18:00 Paliperidone (Invega) 3 mg BID PO Last administered on 01/02/19 08:59; Start 12/28/18 at 21:00 Quetiapine Fumarate (SEROquel) 50 mg QHSP PRN PO INSOMNIA Last administered on 12/30/18 20:50; Start 12/27/18 at 18:00; Stop 12/31/18 at 17:32; Status DC Quetiapine Fumarate (SEROquel) 100 mg QHSP PRN PO INSOMNIA Last administered on 12/31/18 20:59; Start 12/31/18 at 17:45; Stop 01/01/19 at 19:54; Status DC Quetiapine Fumarate (SEROquel) 200 mg QHSP PRN PO INSOMNIA Last administered on 01/01/19at 21:09; Start 01/01/19 at 20:00 Sertraline HCl (Zoloft) 50 mg QAM PO ; Start 12/28/18 at 09:00; Stop 12/28/18 at 09:00; Status DC Sertraline HCl (Zoloft) 50 mg QAM PO Last administered on 12/31/18at 09:00; Start 12/29/18 at 09:00; Stop 12/31/18 at 17:32; Status DC Sertraline HCl (Zoloft) 100 mg QAM PO Last administered on 01/01/19at 08:17; Start 01/01/19 at 09:00; Stop 01/01/19 at 10:04; Status DC Sertraline HCl (Zoloft) 100 mg QAM PO Last administered on 01/02/19at 08:59; Start 01/02/19 at 09:00 Sodium Chloride ([place] Nasal [place]) 2 spray Q2HP PRN NA NASAL DRYNESS; Start 01/01/19 at 10:15 Allergies Coded Allergies: Codeine (Verified Allergy, Unknown, 02/02/15) HENRIETTA CLIFFORD MD Jan 02, 2019 16:42
[2019-01-03 06:40] VITALS: BP 105/61
[2019-01-03] MEDS: PALIPERIDONE 3 MG ER TAB (INVEGA) PO SCH ×2 (09:01→20:58)
[2019-01-03] MEDS: SERTRALINE 100 MG TAB PO SCH (09:01)
[2019-01-03] MEDS: FERROUS SULFATE 325MG TAB PO SCH ×2 (09:01→20:58)
[2019-01-03] MEDS: hydrOXYzine 50 MG TAB PO PRN ×2 (09:01→17:28)
[2019-01-03] MEDS: FOLIC ACID 1 MG TAB PO SCH (09:01)
[2019-01-03] MEDS: DOCUSATE SODIUM 100 MG CAP PO SCH ×2 (09:01→20:58)
[2019-01-03] MEDS: FLUTICASONE PROP 0.05% NASAL SPRAY 16 GM (FLONASE) NARES SCH ×2 (09:01→20:58)
[2019-01-03] MEDS: ACETAMINOPHEN TAB 650MG DOSE (2X325MG) PO PRN (09:02)
[2019-01-03 18:00] VITALS: BP 132/72
--- NOTE | 2019-01-03 20:11 | MHIPNPDOC ---
[facility] Progress Note Progress Note DATE OF SERVICE: 01/03/19 HISTORY:HISTORY OF THE PRESENT ILLNESS: Patient is a 53 -year-old , female, who * Therapist Reason for Referral Susana from [facility] sent pt over due to her having safety concerns for the pt. Chief Complaint Pt disclosed she has had ongoing problems with her place of employment (20 years) for ~2 years now. 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 Pt describes the work place as toxic and in particular, she is being bullied by one person making it impossible for her to do do her job or even want to go to work. Pt was very tearful explaining this story and stated "theres just so many things to tell you that have gone wrong. There's a lot more but I'm sick of retelling the whole story." Pt took a leave of absence due to medical reasons and without knowledge, was not being paid when she should have been. Pt states that her and her are "barely surviving." Pt reported thinking that if she ended her life at least her family would get the life insurance money and they would not be struggling financially anymore. Pt also disclosed that she has thought of driving her car into a hard object as a way to kill herself to stop the emotional pain. Pt also reported she often thinks before bed, "I just want to fall asleep and never wake up so I do not have to go to work tomorrow." Pt states she was "fine" until this particular person started bullying her at work, making her not want to work, but being unable to leave due to being uncertain about correction. Pt reports she has tried finding employment elsewhere but when places of employment find out about the lawsuit, they do not hire her, leaving the pt feeling stuck. Pt has a hx of panic attacks for ~2years now (since this situation begin). Pt denies HI, AH/VH, ETOH/substance abuse, poor sleeping/appetite. Pt is in tx with Susana @ [facility]". VITAL SIGNS: See below. NEW TEST RESULTS: . CURRENT MEDICATIONS: See below. MENTAL STATUS EXAMINATION: Patient is a 53 year old female, who is alert, cooperative, dressed in hospital clothes, looking rested Speech: Is normal rate, tone and volume. Language skills are good. Thought processes including: Linear. Thought content: she still has anxious thoughts but they are under control Description of abnormal or psychotic thoughts: denies SI/HI, denies thought delusions, denies AV hallucinations, she i worried but not paranoid Judgment: Improving Insight: Improving Orientation: x 3 Recent and remote memory: Good Attention span and concentration: improving Fund of knowledge: average Mood: depressed/anxious, but there is improvement Affect: congruent with mood, constricted, depressed, anxious. DIAGNOSES: 1. Major Depressive disorder with psychosis 2. R/O delusional disorder ASSESSMENT: Patient reports finally sleeping well with 300 mgs of Seroquel at night. she looks rested, happier, she is talking with her and I, she smiles. she is not anxious at all times, she is still worried about her job but she is coping with her anxious thoughts in a better way. she says she wants to be discharged tomorrow, she feels safe, she feels that she has improved. MANAGEMENT PLAN: continue with Seroquel 300 mgs PO QHS TIME SPENT: 25 minutes. Vital Signs Vital Signs Date Time Temp Pulse Resp B/P (MAP) Pulse Ox O2 Delivery O2 Flow Rate FiO2 01/03/19 06:40 96.3 57 20 105/61 (76) 12/30/18 08:06 Room Air Current Medications Current Medications Acetaminophen (Tylenol Tab) 650 mg Q6HP PRN PO HEADACHE or DISCOMFORT Last administered on 01/03/19at 09:02; Start 12/27/18 at 18:00 Al Hydrox/Mg Hydrox/Simethicone (Mylanta) 30 ml Q4HP PRN PO HEARTBURN/INDIGESTION Last administered on 12/28/18at 21:45; Start 12/27/18 at 18:00 Aripiprazole (AbiLIFY) 5 mg DAILY PO Last administered on 12/28/18at 08:12; Start 12/28/18 at 09:00; Stop 12/28/18 at 19:27; Status DC Clonazepam (KlonoPIN) 2 mg QHS PO Last administered on 01/02/19at 20:53; Start 12/27/18 at 21:00 Docusate Sodium (Colace) 100 mg BID PO Last administered on 01/03/19at 09:01; Start 01/02/19 at 09:00 Escitalopram Oxalate (Lexapro) 20 mg DAILY PO Last administered on 12/28/18 08:12; Start 12/28/18 at 09:00; Stop 12/28/18 at 15:15; Status DC Ferrous Sulfate (Ferrous Sulfate) 325 mg BID PO Last administered on 12/29/18 08:57; Start 12/28/18 at 09:00; Stop 12/29/18 at 11:56; Status DC Ferrous Sulfate (Ferrous Sulfate) 325 mg BID PO Last administered on 01/03/19 09:01; Start 01/01/19 at 09:00 Fluticasone Propionate (Flonase 0.05% Nasal [place]) 1 spray BID NARES Last administered on 01/03/19 09:01; Start 12/31/18 at 21:00 Folic Acid (Folic Acid) 1 mg DAILY PO Last administered on 01/03/19 09:01; Start 12/28/18 at 09:00 Home Med (Med Rec Complete!) ASDIRECTED XX ; Start 12/27/18 at 18:00; Stop 12/27/18 at 18:04; Status DC Hydroxyzine HCl (Atarax) 50 mg Q6HP PRN PO ANXIETY/AGGITATION Last administered on 01/03/19 17:28; Start 12/27/18 at 18:00 Ibuprofen (Advil) 600 mg Q6HP PRN PO PAIN OR DISCOMFORT; Start 12/31/18 at 19:00; Stop 01/01/19 at 10:13; Status DC Magnesium Hydroxide (Milk Of Magnesia) 30 ml DAILYPRN PRN PO CONSTIPATION Last administered on 12/31/18 17:17; Start 12/27/18 at 18:00 Paliperidone (Invega) 3 mg BID PO Last administered on 01/03/19 09:01; Start 12/28/18 at 21:00 Quetiapine Fumarate (SEROquel) 50 mg QHSP PRN PO INSOMNIA Last administered on 12/30/18 20:50; Start 12/27/18 at 18:00; Stop 12/31/18 at 17:32; Status DC Quetiapine Fumarate (SEROquel) 100 mg QHSP PRN PO INSOMNIA Last administered on 2/18/19at 20:59; Start 12/31/18 at 17:45; Stop 01/01/19 at 19:54; Status DC Quetiapine Fumarate (SEROquel) 200 mg QHSP PRN PO INSOMNIA Last administered on 01/01/19at 21:09; Start 01/01/19 at 20:00; Stop 01/02/19 at 16:43; Status DC Quetiapine Fumarate (SEROquel) 300 mg QHSP PRN PO INSOMNIA Last administered on 01/02/19at 20:53; Start 01/02/19 at 16:45 Sertraline HCl (Zoloft) 50 mg QAM PO ; Start 12/28/18 at 09:00; Stop 12/28/18 at 09:00; Status DC Sertraline HCl (Zoloft) 50 mg QAM PO Last administered on 12/31/18at 09:00; Start 12/29/18 at 09:00; Stop 12/31/18 at 17:32; Status DC Sertraline HCl (Zoloft) 100 mg QAM PO Last administered on 01/01/19at 08:17; Start 01/01/19 at 09:00; Stop 01/01/19 at 10:04; Status DC Sertraline HCl (Zoloft) 100 mg QAM PO Last administered on 01/03/19at 09:01; Start 01/02/19 at 09:00 Sodium Chloride ([place] Nasal [place]) 2 spray Q2HP PRN NA NASAL DRYNESS; Start 01/01/19 at 10:15 Allergies Coded Allergies: Codeine (Verified Allergy, Unknown, 02/02/15) HENRIETTA CLIFFORD MD Jan 03, 2019 20:11
[2019-01-03] MEDS: clonazePAM 1 MG TAB PO SCH (20:58)
[2019-01-03] MEDS: QUEtiapine FUMARATE 100 MG TAB PO PRN (20:58)
[2019-01-04 06:42] VITALS: BP 106/52
[2019-01-04] MEDS: FLUTICASONE PROP 0.05% NASAL SPRAY 16 GM (FLONASE) NARES SCH (08:37)
[2019-01-04] MEDS: SERTRALINE 100 MG TAB PO SCH (08:38)
[2019-01-04] MEDS: hydrOXYzine 50 MG TAB PO PRN (08:38)
[2019-01-04] MEDS: DOCUSATE SODIUM 100 MG CAP PO SCH (08:38)
[2019-01-04] MEDS: FERROUS SULFATE 325MG TAB PO SCH (08:38)
[2019-01-04] MEDS: PALIPERIDONE 3 MG ER TAB (INVEGA) PO SCH (08:38)
[2019-01-04] MEDS: FOLIC ACID 1 MG TAB PO SCH (08:38)
[2019-01-04] MEDS ORDERED: FERR1TAB8 PO (12:10)
[2019-01-04] MEDS ORDERED: COLA100C5 PO (12:10)
[2019-01-04] MEDS ORDERED: SERT-138 PO (12:10)
[2019-01-04] MEDS ORDERED: HYDRO50TAB PO (12:10)
[2019-01-04] MEDS ORDERED: QUET1TAB8 PO (12:10)
[2019-01-04] MEDS ORDERED: OCEA0.654 (12:10)
[2019-01-04] MEDS ORDERED: FOLI1TAB11 PO (12:10)
[2019-01-04] MEDS ORDERED: PALI1TAB2 PO (12:10)
[2019-01-04] MEDS ORDERED: FLUTISP NARES (12:10)
--- NOTE | 2019-01-06 19:15 | MHDSPDOC ---
[facility] Discharge Summary Discharge Summary DATE OF ADMISSION: Dec 27, 2018 at 17:53 DATE OF DISCHARGE: Jan 04, 2019 at 13:30 DISCHARGE DIAGNOSES: 1. Major Depressive disorder with psychosis 2. Generalized Anxiety disorder 3. R/O delusional disorder REASON FOR ADMISSION: Chief Complaint "I can't keep going on like this". History of Present Illness HISTORY OF THE PRESENT ILLNESS: Patient is a 53 -year-old , female who was referred by her Therapist at the [facility] and who, according to the ED report: " Pt disclosed she has had ongoing problems with her place of employment (20 years) for ~2 years now. 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 Pt describes the work place as toxic and in particular, she is being bullied by one person making it impossible for her to do do her job or even want to go to work. Pt was very tearful explaining this story and stated "theres just so many things to tell you that have gone wrong. There's a lot more but I'm sick of retelling the whole story." Pt took a leave of absence due to medical reasons and without knowledge, was not being paid when she should have been. Pt states that her and her are "barely surviving." Pt reported thinking that if she ended her life at least her family would get the life insurance money and they would not be struggling financially anymore. Pt also disclosed that she has thought of driving her car into a hard object as a way to kill herself to stop the emotional pain. Pt also reported she often thinks before bed, "I just want to fall asleep and never wake up so I do not have to go to work tomorrow." Pt states she was "fine" until this particular person started bullying her at work, making her not want to work, but being unable to leave due to being uncertain about usp. Pt reports she has tried finding employment elsewhere but when places of employment find out about the lawsuit, they do not hire her, leaving the pt feeling stuck. Pt has a hx of panic attacks for ~2years now (since this situation begin). Pt denies HI, AH/VH, ETOH/substance abuse, poor sleeping/appetite. Pt is in tx with Susana @ [facility]". CONSULTANTS INVOLVED: None TREATMENT AND PROGRESS ON THE UNIT : Patient reported being bullied by staff at the [employer] where she works. She said different people were against her but everything had started with one person bullying her, then this person left and the other person that came in continued the bullying. She was extremely tearful, fearful, sad, depressed and anxious when tw first met with her. Her fear had made her feel paranoid and she said that she felt paranoid. For that reason I decided to start her on Invega,3 mgs PO BID, to help her with the paranoia, that by the way, was founded on a history of harassment. Her anxiety levles had escalated so much, that she couldn't sleep. TW decided to give her Seroquel for sleep but with 200 mgs she was still not able to go to sleep, so, it was increased to 300 mgs PO QHS PRN for insomnia. This medication had a positive effect on her because it helped her sleep and relax, it also acted as a booster for her antidepressant. She had been taking Abilify and I believe it was prescribed as a booster for her antidepressant but it was not working when she was admitted. The patient had been taking Lexapro but I decided to discontinue it and I started her on Zoloft that ws increased to 100 mgs. and it was effective. On night she was seen interacting with her who came to visit her and she was seen smiling. Previously, on Monday, she already showed signs of improvement. Patient denied suicidal thoughts during the last 48-72 hours of hospitalization but she reported she was still anxious and her anxiety was secondary to the thought of going back to work because she said she didn't know how to deal with the situation at work (harassment) that motivated her hospitalization. Patient has a therapist and she will continue to see her mental health providers at [facility]. HOSPITAL COURSE: As above DISCHARGE ASSESSMENT: Patient was not suicidal, not homicidal and not psychotic at the time of her discharge. MENTAL STATUS EXAMINATION ON DISCHARGE: Patient is a 53 year old female, who is alert, cooperative, dressed in hospital clothes, looking rested Speech: Is normal rate, tone and volume. Language skills are good. Thought processes including: Linear. Thought content: she still has anxious thoughts but they are under control Description of abnormal or psychotic thoughts: denies SI/HI, denies thought delusions, denies AV hallucinations, she is worried but not paranoid Judgment: Improving Insight: Improving Orientation: x 3 Recent and remote memory: Good Attention span and concentration: improving Fund of knowledge: average Mood: less depressed/anxious, there is improvement Affect: congruent with mood, more reactive, it is appropriate, full MEDICATIONS ON DISCHARGE: Aripiprazole (Aripiprazole) 5 Mg Tab, 5 MG PO DAILY, (Reported) Clonazepam (Clonazepam) 2 Mg Tab, 2 MG PO QHS, (Reported) Docusate Sodium (Colace) 100 Mg Cap, 100 MG PO BID for CONSTIPATION, #14 Ferrous Sulfate (Ferrous Sulfate) 325 Mg Tab, 325 MG PO BID for anemia, #14 Fluticasone Propionate (Fluticasone Propionate) 50 Mcg/Act Spr, 1 SPRAY NARES BID for sinus, #1 Folic Acid (Folic Acid) 1 Mg Tab, 1 MG PO DAILY for nutritional supplement, #7 Paliperidone (Paliperidone ER) 3 Mg Tab, 3 MG PO BID for DELUSIONS, #14 Sertraline HCl (Sertraline HCl) 100 Mg Tab, 100 MG PO QAM for DEPRESSION, #7 Scheduled PRN Hydroxyzine HCl (Hydroxyzine HCl) 50 Mg Tab, 50 MG PO Q6HP PRN for ANXIETY/AGGITATION, #28 Quetiapine Fumerate (Quetiapine Fumarate) 100 Mg Tab, 300 MG PO QHSP PRN for INMSOMNIA/MOOD, #7 Sodium Chloride ([place] Nasal [place]) 0.65 % Spr, 2 SPRAY NA Q2HP PRN for NASAL DRYNESS, #1 PLAN/FOLLOWUP ARRANGEMENTS: Follow Up Care Education Label * Mental Health Appt 1 * Medical Follow Up [facility] * Established With This Provider Yes * Therapist EZEKIEL * Date Jan 11, 2019 * Time 16:00 * Follow Up Care Education Label * Medical * Medical Follow Up [facility] * Established With This Provider Yes * Therapist DR. MARTINEZ * Date Jan 18, 2019 * Time 13:00 * The amount of time spent in the coordination of care for this patient was approximately 30 minutes. Vital Signs/I&Os Vital Signs Date Time Temp Pulse Resp B/P (MAP) Pulse Ox O2 Delivery O2 Flow Rate FiO2 01/04/19 06:42 98.5 60 18 106/52 (70) Laboratory Data Microbiology Microbiology 12/29/18 Stool Occult Blood (FABIAN) - Final, Complete Medications Scheduled Aripiprazole (Aripiprazole) 5 Mg Tab, 5 MG PO DAILY, (Reported) Clonazepam (Clonazepam) 2 Mg Tab, 2 MG PO QHS, (Reported) Docusate Sodium (Colace) 100 Mg Cap, 100 MG PO BID for CONSTIPATION, #14 Ferrous Sulfate (Ferrous Sulfate) 325 Mg Tab, 325 MG PO BID for anemia, #14 Fluticasone Propionate (Fluticasone Propionate) 50 Mcg/Act Spr, 1 SPRAY NARES BID for sinus, #1 Folic Acid (Folic Acid) 1 Mg Tab, 1 MG PO DAILY for nutritional supplement, #7 Paliperidone (Paliperidone ER) 3 Mg Tab, 3 MG PO BID for DELUSIONS, #14 Sertraline HCl (Sertraline HCl) 100 Mg Tab, 100 MG PO QAM for DEPRESSION, #7 Scheduled PRN Hydroxyzine HCl (Hydroxyzine HCl) 50 Mg Tab, 50 MG PO Q6HP PRN for ANXIETY/AGGITATION, #28 Quetiapine Fumerate (Quetiapine Fumarate) 100 Mg Tab, 300 MG PO QHSP PRN for INMSOMNIA/MOOD, #7 Sodium Chloride ([place] Nasal [place]) 0.65 % Spr, 2 SPRAY NA Q2HP PRN for NASAL DRYNESS, #1 Allergies Coded Allergies: Codeine (Verified Allergy, Unknown, 02/02/15) HENRIETTA CLIFFORD MD Jan 06, 2019 19:07
== END 2019-01-04 13:30 | disposition home or self-care (01) | DRG 751 ==
LOC: M ED 13:38 → M ED INP 17:53 → M PSY 18:15
PROVIDERS: ADMIT Psychiatry & Neurology Psychiatry; ATTEND Psychiatry & Neurology Psychiatry
DX: F32.3 Major depressive disorder, single episode, severe with psychotic features (principal); F41.1 Generalized anxiety disorder; Z56.4 Discord with boss and workmates; Z79.899 Other long term (current) drug therapy; Z88.8 Allergy status to other drugs, medicaments and biological substances; Z98.84 Bariatric surgery status; Z90.49 Acquired absence of other specified parts of digestive tract

== ENCOUNTER → 2024-08-31 | Outpatient (CLI) | payer OTHER, BC ==
[~2024-08-31] MED LIST changes: +ARIP1TAB6 PO; +CLON2TAB7 PO; +COLA100C5 PO; +ESCI20TA16 PO; +FERR1TAB8 PO; +FLUTISP NARES; +FOLI1TAB11 PO; +HYDR1TAB33 PO; +OCEA0.654; +PALI1TAB2 PO; +QUET100T2 PO; +SERT-138 PO; +TRAZ150T90 PO
== END ==
LOC: M RAD 16:14
PROVIDERS: ATTEND Physician Assistant Medical
DX: R05.9 Cough, unspecified (principal)